=== PATIENT | female | born 1995 | race Caucasian/White ===

== ENCOUNTER 2024-10-09 22:49 | Emergency (ER) | payer SELFPAY ==
[2024-10-09 22:57] VITALS: BP 116/86
--- NOTE | 2024-10-10 00:24 | ED.GENMED ---
History of Present Illness
General
Chief Complaint: Anxiety
Source: patient and other
Exam Limitations: none
Time Seen by Provider: 10/10/24 00:19
History of Present Illness
History of Present Illness:
Patient states she is having a panic attack. Started about 6 PM. Her pet spider . Anxious jittery palpitations. No chest pain no pleuritic pain no other complaints. This typically happens once or twice a month.
Past History
Past History
ED Past Medical History: Psychiatric
ED Past Surgical History: and Other (Hernia repair)
Social History
Alcohol: None
Drug: None
Employment: Employed
Review of Systems
Review of Systems
All Other Systems: Not applicable
Constitutional: Denies fever
Cardiac: Denies chest pain or syncope
Phy Exam
Physical Exam
Physical Exam:
GENERAL: Alert and oriented in no apparent distress
EYE: Orbits normal.
NECK: Supple, no thyroid palpable
ENT: Pharynx without erythema
CARDIAC: Mildly tachycardic and regular no murmur
LUNGS: Clear breath sounds,normal
ABDOMEN: Soft, without focal tenderness or distention
NEUROLOGICAL: Alert and oriented , grossly non-focal
SKIN: Warm and dry, no rash or lesion, no discoloration, skin intact.
MUSCULOSKELETAL: No edema,no deformity.Good color
PSYCH: Cooperative but anxious
Course
Orders/Labs/Results
Orders:
Orders
10/10/24 00:24
Cardiac Monitoring- Treatment ONCE
IV Insert/Care/Rem.- Treatment PRN
0.9% Sodium Chloride 1000 ml [Nss] 1,000 ml IV BOLUS
Lorazepam [Ativan] 1 mg IV NOW STA
Test Result ONCE
10/10/24 00:46
Basic Metabolic Panel Urgent
Complete Blood Count/With Diff Urgent
HCG, Serum Qualitative Screen Urgent
TSH Reflex To Free T4 Urgent
Abnormal Lab Results
10/10/24
00:46
MPV 12.5 H fL
(7.4-10.4)
Absolute Neuts (auto) 7.3 H 10^3/uL
(1.4-6.5)
Neutrophils % 82.6 H %
(42.2-75.2)
Lymphocytes % 13.7 L %
(20.5-51.1)
Glucose 128 H mg/dl
(70-99)
10/10/24 00:46
10/10/24 00:46
Vital Signs
Initial and Last Documented VS:
Initial Vital Signs
Temp Pulse Resp BP Pulse Ox
97.8 F 115 26 116/86 98
10/09/24 22:57 10/09/24 22:57 10/09/24 22:57 10/09/24 22:57 10/09/24 22:57
Last Documented Vital Signs
Temp Pulse Resp BP Pulse Ox
97.8 F 65 10 100/71 99
10/09/24 22:57 10/10/24 01:30 10/10/24 01:30 10/10/24 01:00 10/10/24 01:30
MDM/Problems Addressed
Differential Diagnosis Includes:
Clinically very suspicious for a panic attack. Clinically I do not find anything that would support another etiology or diagnosis. Will check routine labs fluids check a TSH test Ativan and observation
*Pulse Oximetry
Patient hypoxic: no
*[employer] Interpretation
Rate: normal
Interpretation: normal
Heart Rate: 67
Rhythm: sinus
*Critical Care Note
Total Time (30-74mins, 75-104mins- exclusive of procedures): Not Applicable
Data Reviewed
Review of Other/Old Records Reveals: Labs, Records and Testing
Update Note
Update Note:
0245... Patient feels well and is doing well. Discharged to follow-up
ED Attending Note
-
Portions of this chart may have been created with voice recognition software.� Occasional wrong word or��sound alike� substitutions may have occurred due to the inherent limitations of voice recognition software.
Discharge Plan
Departure
Patient Disposition: Home (Routine Discharge)
Date of Disposition: 10/10/24
Time of Disposition: 02:44
Patient with high blood pressure during this ER visit?: No
Discharge Problem:
Panic attack
Instructions: Anxiety, Adult (DC)
Prescriptions:
No Action
ondansetron 4 MG tablet,disintegrating
4 mg PO TIDPRN PRN (Reason: nausea/vomiting) Qty: 10 0RF
lorazepam [Ativan] 1 mg tablet
1 mg PO BID PRN (Reason: anxiety) Qty: 8 0RF
Referrals:
UNKNOWN - PT DOES,NOT KNOW [Family Provider] -
Activity Restrictions/Additional Instructions:
Follow-up closely with your primary physician
Interventions
Interventions:
*Risk Screen - Suicide Last Done: 10/09/24 22:58
*General Assessment Last Done: 10/10/24 00:28
*Neglect/Abuse Screening Last Done: 10/10/24 00:28
ED- Fall Risk Assessment Last Done: 10/10/24 00:28
*ED COVID-19 Vaccine History Last Done: 10/10/24 00:28
ED-Psychological Assessment Last Done: 10/10/24 00:28
Discharge Date and Time
Print Language: CROATIAN
[2024-10-10 00:28] VITALS: BMI 17.6
[2024-10-10 01:00] VITALS: BP 100/71
[2024-10-10] MEDS: ATIVAN 1 MG IV (01:00)
[2024-10-10] MEDS: NSS 1000 IV (01:02)
[2024-10-10 01:11] LABS: % Basophils 0.6 % (0-2); % Eosinophils 0.2 % (0-6); % Immature Granulocytes 0.2 % (0-0.5); % Lymphocytes 13.7 % (20.5-51.1); % Monocytes 2.7 % (1.7-9.3); % Neutrophils 82.6 % (42.2-75.2); Absolute Basophils 0.1 10^3/uL (0-0.2); Absolute Lymphocytes 1.2 10^3/uL (1.2-3.4); Absolute Monocytes 0.2 10^3/uL (0.1-0.6); Absolute Neutrophils 7.3 10^3/uL (1.4-6.5); Hematocrit 39.1 % (37.0-47.0); Mean Corp Hgb Conc. 33.2 g/dL (33.0-37.0); Mean Corpuscular Hgb 27.1 pg (27.0-31.0); Mean Corpuscular Volume 81.5 fL (81.0-99.0); Mean Platelet Volume 12.5 fL (7.4-10.4); Nucleated Red Blood Cells % 0 %; Platelet Count 216 10^3/uL (130-400); Red Cell Dist. Width 13.3 % (11.5-14.5); White Blood Cell Count 8.9 10^3/uL (4.8-10.8)
[2024-10-10 01:45] LABS: HCG, Serum Qualitative Screen Negative
[2024-10-10 01:53] LABS: Blood Urea Nitrogen 10 mg/dl (7-17); Carbon Dioxide 22 mmol/L (22-30); Chloride 103 mmol/L (98-107); Estimated Creatinine Clearance 78 ml/min; Glucose 128 mg/dl (70-99); Potassium 3.9 mmol/L (3.5-5.1); Sodium 138 mmol/L (135-145); eGFR > 60.00
[2024-10-10 02:00] VITALS: BP 104/64
[2024-10-10 02:47] VITALS: BP 106/66
[2024-10-10 04:01] LABS: TSH Reflex To Free T4 1.85 uIU/ml (0.47-4.68)
== END 2024-10-10 03:02 | disposition home or self-care (01) ==
LOC: EMR 22:49
PROVIDERS: EMERGENCY PHYSICIAN Emergency Medicine
DX: F41.0 Panic disorder [episodic paroxysmal anxiety] (principal)
CPT/HCPCS: 96374; 96361; 99284; 80048; 84443; 84703; 85025